=== PATIENT | male | born 1995 | race Caucasian/White ===

== ENCOUNTER 2018-04-14 17:54 | Emergency (ER) | payer OTHER ==
[2018-04-14 18:00] VITALS: BP 154/97
[2018-04-14] MEDS ORDERED: TETANUS/DIPHTHERIA/PERTUSSIS 0.5 ML SYRINGE IM ONE (18:06)
[2018-04-14] MEDS ORDERED: IBUPROFEN 800 MG TABLET PO STA (18:16)
--- NOTE | 2018-04-14 18:21 | ED Physician Documentation ---
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 No: Weakness, Numbness, Tingling Similar symptoms before: Has not had sx before Recently seen: Not recently seen - Additonal information Additional information: pt is right handed, unknown last td Review of Systems Neurologic: denies: Focal weakness, Numbness PD PAST MEDICAL HISTORY - Past Medical History Past Medical History: No Cardiovascular: None Respiratory: None Neuro: None Endocrine/Autoimmune: None GI: None : None HEENT: None Psych: None Musculoskeletal: None Derm: None - Past Surgical History Past Surgical History: No - Present Medications Home Medications: Ambulatory Orders Medication Instructions Recorded Confirmed No Known Home Medications 04/14/18 04/14/18 - Allergies Allergies/Adverse Reactions: Allergies Allergy/AdvReac Type Severity Reaction Status Date / Time No Known Drug Allergies Allergy Verified 04/14/18 18:00 - Social History Does the pt smoke?: No Smoking Status: Never smoker Does the pt drink ETOH?: Yes ETOH Use: Wine, Beer, Liquor Does the pt have substance abuse?: No - Immunizations Immunizations are current?: No Immunizations: TDAP >10years/unknown - POLST Patient has POLST: No PD ED PE NORMAL - Vitals Vital signs reviewed: Yes - General General: Alert and oriented X 3, No acute distress - HEENT HEENT: Moist mucous membranes - Derm Derm: Warm and dry - Extremities Extremities: Other (R hand - 1 cm laceration in between the 4th and 5th digits on the palm. No evidence of tendon injury. Full range of motion of the hand. Neurovascularly intact) - Neuro Neuro: Alert and oriented X 3 Results - Vitals Vitals: Vital Signs - 24 hr 04/14/18 17:57 Temperature 36.3 C L Heart Rate 62 Respiratory 20 Rate Blood Pressure 154/97 H O2 Saturation 100 Oxygen O2 Source Room air - Rads (name of study) r hand xray Radiology: Prelim report reviewed, EMP read contemporaneously, See rad report (Small lucency is seen at the distal ulnar aspect of the fifth proximal phalanx distal aspect, could represent a tiny fracture/defect from the injury versus a cyst, measures 2 mm. Otherwise, no evidence for acute fracture. Adjacent soft t issue swelling and laceration. Soft tissue swelling adjacent to the fifth metacarpal. No subluxation. ) Procedures - Laceration (location) R hand Length in cm: 1 Wound type: Linear, Into subcut fat, Clean Neurovascular status: Sensory intact, Motor intact, Vascular intact Tendon involvement: Tendon intact Anesthesia: Lidocaine 2% Wound Preparation: Irrigated copiously NS, Wound explored, To the base. No: FB identified Skin layer closure: Nylon, Size #-0 - enter number (4), Sutures - enter # (3) Other: Patient tolerated well, No complications, Neurovascular intact, Dressing applied, Tetanus booster given (tdap) Complexity: Simple PD MEDICAL DECISION MAKING - ED course Complexity details: reviewed results, re-evaluated patient, considered differential, d/w patient ED course: 22-year-old male with a right hand crush injury and laceration. Laceration repaired. No acute fractures on x-ray. The possible tiny fracture defect from the injury is nontender on exam. Tdap given. Warnings of infection and instructions on wound care given at bedside. Also counseled on how to minimize scarring. Patient counseled regarding signs and symptoms for which I believe and urgent re-evaluation would be necessary. Patient with good understanding of and agreement to plan and is comfortable going home at this time This document was made in part using voice recognition software. While efforts are made to proofread this document, sound alike and grammatical errors may occur. Departure - Departure Disposition: 01 Home, Self Care Clinical Impression: Hand laceration Qualifiers: Encounter type: initial encounter Foreign body presence: without foreign body Laterality: right Qualified Code(s): S61.411A - Laceration without foreign body of right hand, initial encounter Crush injury of hand Qualifiers: Encounter type: initial encounter Laterality: right Qualified Code(s): S67.21XA - Crushing injury of right hand, initial encounter Condition: Good Instructions: ED Laceration Hand Follow-Up: Norbert Wallace MD [Primary Care Provider] - (in 10 days for suture removal ) Comments: Return if you worsen. Keep the wound clean. Return for redness, swelling or drainage from the wound. The sutures should be removed in 10-14 days with your doctor Discharge Date/Time: 04/14/18 19:32
--- NOTE | 2018-04-14 18:49 | XRAY Report ---
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 COMPARISON: None. TECHNIQUE: 3 views. FINDINGS: Small lucency is seen at the distal ulnar aspect of the fifth proximal phalanx distal aspect, could represent a tiny fracture/defect from the injury versus a cyst, measures 2 mm. Otherwise, no evidence for acute fracture. Adjacent soft tissue swelling and laceration. Soft tissue swelling adjacent to the fifth metacarpal. No subluxation. IMPRESSION: Small lucency is seen at the distal ulnar aspect of the fifth proximal phalanx distal aspect, could represent a tiny fracture/defect from the injury versus a cyst, measures 2 mm. Otherwise, no evidence for acute fracture. Adjacent soft tissue swelling and laceration. Soft tissue swelling adjacent to the fifth metacarpal. No subluxation. RADIA
[2018-04-14] MEDS ORDERED: BACITRACIN OINT TOP ONE (19:25)
== END 2018-04-14 19:32 | disposition home or self-care (01) ==
LOC: ED 17:54
DX: S61.411A Laceration without foreign body of right hand, initial encounter (principal); S67.21XA Crushing injury of right hand, initial encounter; W31.82XA Contact with other commercial machinery, initial encounter; Y99.0 Civilian activity done for income or pay; Z23 Encounter for immunization
CPT/HCPCS: 12001; 73130; 90471; 90715; 99282; A9270

== ENCOUNTER 2022-10-29 08:00 | Outpatient (CLI) | payer OTHER | END 2022-10-29 23:59 | disposition home or self-care (01) | LOC: LAB.N 08:00 | PROVIDERS: ATTEND Family Medicine | DX: R19.7 Diarrhea, unspecified (principal) | CPT/HCPCS: 83993; 87045; 87046; 87329; 87427; 87493 ==

== ENCOUNTER 2023-02-24 11:00 | Outpatient (CLI) | payer MEDICAID ==
[2023-02-24 20:29] LABS: CHLAMYDIA TRACHOMATIS DNA NEGATIVE (NEGATIVE); NEISSERIA GONORRHOEAE DNA NEGATIVE (NEGATIVE); TRICHOMONAS VAGINALIS DNA NEGATIVE (NEGATIVE)
== END 2023-02-24 11:15 | disposition home or self-care (01) ==
LOC: LAB.N 11:00
PROVIDERS: ATTEND Nurse Practitioner
DX: Z11.3 Encounter for screening for infections with a predominantly sexual mode of transmission (principal)
CPT/HCPCS: 87491; 87591; 87661

== ENCOUNTER 2023-03-18 14:00 | Outpatient (CLI) | payer MEDICAID ==
[2023-03-18 17:50] LABS: BASOPHILS # (AUTO) 0.1 10^3/uL (0.0-0.1); BASOPHILS % (AUTO) 0.7 %; EOSINOPHILS # (AUTO) 0.2 10^3/uL (0.0-0.7); HCT - HEMATOCRIT 50.4 % (42.0-52.0); HGB - HEMOGLOBIN 16.6 g/dL (14.0-18.0); MEAN CORPUSCULAR HEMOGLOBIN 29.6 pg (27.0-31.0); MEAN CORPUSCULAR HGB CONC 32.9 g/dL (32.0-36.0); MEAN CORPUSCULAR VOLUME 89.8 fL (80.0-94.0); MEAN PLATELET VOLUME 10.2 fL (7.4-11.4); MONOCYTES # (AUTO) 0.5 10^3/uL (0.0-1.0); MONOCYTES % (AUTO) 6.7 %; NEUTROPHILS # (AUTO) 5.3 10^3/uL (1.5-6.6); NEUTROPHILS % (AUTO) 65.5 %; PLT - PLATELET COUNT 286 10^3/uL (130-450); RED BLOOD COUNT 5.61 10^6/uL (4.70-6.10); WHITE BLOOD COUNT 8.1 x10^3/uL (4.8-10.8)
[2023-03-18 18:17] LABS: INFECTIOUS MONONUCLEOSIS NEGATIVE (Negative)
[2023-03-18 18:18] LABS: THYROID STIMULATING HORMONE 0.79 uIU/mL (0.34-5.60)
[2023-03-18 19:22] LABS: ALBUMIN 4.9 g/dL (3.2-5.5); ALBUMIN/GLOBULIN RATIO 1.8 (1.0-2.2); BILIRUBIN,TOTAL 0.6 mg/dL (0.2-1.0); CALCIUM 10.1 mg/dL (8.5-10.3); CREATININE 1.1 mg/dL (0.6-1.3); POTASSIUM 4.1 mmol/L (3.5-4.5); TOTAL PROTEIN 7.7 g/dL (6.4-8.9)
== END 2023-03-18 14:15 | disposition home or self-care (01) ==
LOC: LAB.N 14:00
PROVIDERS: ATTEND Specialist
DX: R53.83 Other fatigue (principal)
CPT/HCPCS: 36415; 80053; 83690; 84436; 84443; 84480; 85025; 86308

== ENCOUNTER 2023-03-30 18:15 | Outpatient (CLI) | payer MEDICAID ==
--- NOTE | 2023-03-31 09:56 | Ultrasound Report ---
PROCEDURE: Pelvic Limited INDICATIONS: ABD WALL PAIN TECHNIQUE: Real-time transabdominal scanning was performed of the inguinal region, with image documentation. COMPARISON: None. FINDINGS: Left inguinal hernia containing fat. The neck measures 5 mm. The sac measures approximately 10 mm. IMPRESSION: Small left inguinal hernia containing fat. Reviewed by: Raghav Lamas MD on 03/31/2023 9:55 AM PST Approved by: Raghav Lamas MD on 03/31/2023 9:55 AM [facility] Station ID: [id number]
== END 2023-03-30 18:16 | disposition home or self-care (01) ==
LOC: DI 18:15
PROVIDERS: ATTEND Specialist
DX: R10.9 Unspecified abdominal pain (principal); K40.90 Unilateral inguinal hernia, without obstruction or gangrene, not specified as recurrent